=== PATIENT | female | born 1940 | race Caucasian/White ===

== ENCOUNTER → 2017-03-24 | Outpatient (CLI) | payer MEDICARE, OTHER ==
[~2017-03-24] MED LIST: ASCO500T8 PO; CHOL100011 PO; MELA1TAB22 PO; UBID1CAP43 PO; [UNRECOGNIZED DRUG - CODE] PO; magnesium powder PEG
[2017-03-24 12:24] LABS: HEMATOCRIT 38.8 % (34.6-47.8); HEMOGLOBIN 13.1 g/dL (11.7-16.4); WHITE BLOOD COUNT 12.3 x10^3/uL (3.4-10)
[2017-03-24 12:33] LABS: BLOOD UREA NITROGEN 14 mg/dL (7-18)
[2017-03-24 12:37] LABS: ASPARTATE AMINO TRANSFERASE 15 U/L (15-37)
== END | disposition home or self-care (01) ==
LOC: STAR 11:05
PROVIDERS: ATTEND Specialist
DX: Z01.818 Encounter for other preprocedural examination (principal); M47.894 Other spondylosis, thoracic region; R19.07 Generalized intra-abdominal and pelvic swelling, mass and lump; R79.1 Abnormal coagulation profile
CPT/HCPCS: 36415; 71020; 80053; 85025; 85610; 85730; 86304; 93005

== ENCOUNTER 2017-03-31 11:16 | Inpatient (IN) | payer MEDICARE, OTHER ==
[~2017-03-31] VITALS: Ht 162.6 cm; Wt 72.0 kg
[2017-03-31] MEDS ORDERED: LACTATED RINGERS 1,000 ML IV SCH (11:28)
[2017-03-31] MEDS ORDERED: ONDANSETRON 2MG/ML, 2ML ONE (14:08)
[2017-03-31] MEDS ORDERED: SUCCINYLCHOLINE 20 MG/ML, 10ML ONE (14:08)
[2017-03-31] MEDS ORDERED: PROPOFOL 10 MG/ML, 20ML ONE (14:08)
[2017-03-31] MEDS ORDERED: CEFAZOLIN 1,000 MG ONE (14:08)
[2017-03-31] MEDS ORDERED: DEXAMETHASONE 4 MG/ML, 1ML ONE (14:08)
[2017-03-31] MEDS ORDERED: ROCURONIUM 10 MG/ML,10ML ONE (14:08)
[2017-03-31] MEDS ORDERED: NEOSTIGMINE 1 MG/ML, 10ML ONE (14:08)
[2017-03-31] MEDS ORDERED: MIDAZOLAM 1 MG/ML, 2ML ONE (14:08)
[2017-03-31] MEDS ORDERED: FENTANYL PF 250 MCG/5ML ONE (14:08)
[2017-03-31] MEDS ORDERED: GLYCOPYRROLATE 0.2MG/1ML, 5ML ONE (14:08)
[2017-03-31] MEDS ORDERED: LIDOCAINE GEL 2%, 5ML ONE (14:10)
[2017-03-31] MEDS ORDERED: BUPIVACAINE/PF 0.25% ONE (15:07)
[2017-03-31] MEDS ORDERED: EPINEPHRINE 1 MG/ML, 1ML ONE (15:07)
[2017-03-31] MEDS ORDERED: SCOPOLAMINE PATCH, 1.5MG PATCH.TD72 TD ONE ×2 (15:10→15:30)
[2017-03-31] MEDS ORDERED: KETOROLAC 30 MG/1 ML ONE (16:44)
[2017-03-31] MEDS ORDERED: LABETALOL 5MG/ML, 20ML ONE (16:44)
[2017-03-31] MEDS ORDERED: hydrALAzine 20 MG/ML, 1ML ONE (16:52)
[2017-03-31] MEDS ORDERED: SODIUM CHLORIDE 0.9% PF 10ML ONE (16:52)
[2017-03-31] MEDS ORDERED: MIDAZOLAM 1 MG/ML, 2ML IV PRN (17:00)
[2017-03-31] MEDS ORDERED: LORazepam 2 MG/ML, 1ML IVPush PRN (17:00)
[2017-03-31] MEDS ORDERED: hydrALAzine 20 MG/ML, 1ML IV PRN (17:00)
[2017-03-31] MEDS ORDERED: LABETALOL 5MG/ML, 20ML IV PRN (17:00)
[2017-03-31] MEDS ORDERED: OXYcodone 5 MG/5 ML ORAL.SOL UDC PO PRN (17:00)
[2017-03-31] MEDS ORDERED: ALBUTEROL/IPRATROPIUM 2.5MG/0.5MG, 3 ML NPPB PRN (17:00)
[2017-03-31] MEDS ORDERED: MEPERIDINE/PF 25MG/0.5ML IVPush PRN (17:00)
[2017-03-31] MEDS ORDERED: ONDANSETRON 2MG/ML, 2ML IVPush PRN (17:00)
[2017-03-31] MEDS ORDERED: ACETAMINOPHEN 325 MG TABLET PO PRN (17:00)
[2017-03-31] MEDS ORDERED: FENTANYL PF 100 MCG/2ML IV PRN (17:00)
[2017-03-31] MEDS ORDERED: PROMETHAZINE 25 MG/ML, 1ML IV PRN (17:00)
[2017-03-31] MEDS ORDERED: DIAZEPAM 5 MG/ML, 2ML IVPush PRN (17:00)
[2017-03-31] MEDS ORDERED: FENTANYL PF 100 MCG/2ML ONE (19:00)
[2017-03-31] MEDS ORDERED: HYDROmorphone 1 MG/ML, 1ML ONE ×2 (19:35→20:12)
[2017-03-31] MEDS: HYDROmorphone 1 MG/ML, 1ML IV PRN ×6 (19:43→20:33)
[2017-03-31] MEDS ORDERED: morphine SULFATE 10 MG/ML, 1ML IV PRN (22:00)
[2017-03-31] MEDS: CEFOTETAN PMX 2GM/50ML 50 ML IV SCH (22:02)
[2017-03-31] MEDS: POTASSIUM CHLORIDE 20 MEQ in D5%-0.45% NACL 1,000 ML IV SCH (22:02)
[2017-03-31] MEDS: METRONIDAZOLE PMX 500MG/100ML 100 ML IV SCH (22:38)
[2017-04-01 03:34] VITALS: BP 110/55
[2017-04-01] MEDS: METRONIDAZOLE PMX 500MG/100ML 100 ML IV SCH ×2 (04:29→11:06)
[2017-04-01] MEDS: POTASSIUM CHLORIDE 20 MEQ in D5%-0.45% NACL 1,000 ML IV SCH ×3 (05:15→18:42)
[2017-04-01 06:23] LABS: HEMATOCRIT 33.5 % (34.6-47.8); HEMOGLOBIN 11.1 g/dL (11.7-16.4); WHITE BLOOD COUNT 18.1 x10^3/uL (3.4-10)
[2017-04-01 06:32] LABS: BLOOD UREA NITROGEN 9 mg/dL (7-18)
[2017-04-01 06:52] LABS: DIFF TOTAL CELLS COUNTED 100 CELL DIFF
[2017-04-01 06:54] LABS: VERIFY COUNTS? YES
[2017-04-01 06:55] VITALS: BP 112/53
[2017-04-01] MEDS: CEFOTETAN PMX 2GM/50ML 50 ML IV SCH (10:23)
[2017-04-01 12:58] VITALS: BP 107/47
[2017-04-01] MEDS: PIPERACILLIN/TAZO/PMX 3.375GM 50 ML IV SCH ×2 (15:58→21:22)
[2017-04-01 20:00] VITALS: BP 98/47
[2017-04-02] MEDS: POTASSIUM CHLORIDE 20 MEQ in D5%-0.45% NACL 1,000 ML IV SCH ×4 (00:08→20:24)
[2017-04-02] MEDS: PIPERACILLIN/TAZO/PMX 3.375GM 50 ML IV SCH ×4 (02:57→20:45)
[2017-04-02 03:18] VITALS: BP 115/55
[2017-04-02 07:00] VITALS: BP 113/65
[2017-04-02 09:01] LABS: HEMATOCRIT 30.1 % (34.6-47.8); HEMOGLOBIN 10.1 g/dL (11.7-16.4); WHITE BLOOD COUNT 15.2 x10^3/uL (3.4-10)
[2017-04-02 09:13] LABS: BLOOD UREA NITROGEN 7 mg/dL (7-18)
[2017-04-02 13:00] VITALS: BP 125/56
[2017-04-02 20:52] VITALS: BP 120/64
[2017-04-03 00:20] VITALS: BP 104/62
[2017-04-03] MEDS ORDERED: OXYC-306 PO (00:22)
[2017-04-03] MEDS ORDERED: ONDA4TAB7 PO (00:23)
[2017-04-03 01:14] VITALS: BP 139/73
[2017-04-03] MEDS: ONDANSETRON 2MG/ML, 2ML IVPush PRN ×2 (02:29→10:46)
[2017-04-03] MEDS: POTASSIUM CHLORIDE 20 MEQ in D5%-0.45% NACL 1,000 ML IV SCH ×4 (02:29→20:26)
[2017-04-03] MEDS: PIPERACILLIN/TAZO/PMX 3.375GM 50 ML IV SCH ×4 (02:52→22:46)
[2017-04-03 06:02] LABS: HEMATOCRIT 33.5 % (34.6-47.8); HEMOGLOBIN 11.5 g/dL (11.7-16.4); WHITE BLOOD COUNT 16.4 x10^3/uL (3.4-10)
[2017-04-03 06:17] LABS: BLOOD UREA NITROGEN 5 mg/dL (7-18)
[2017-04-03 06:35] VITALS: BP 125/85
[2017-04-03] MEDS ORDERED: OXYcodone/APAP 5/325MG TABLET PO PRN (08:30)
[2017-04-03 12:23] VITALS: BP 146/78
[2017-04-03 18:58] VITALS: BP 145/76
[2017-04-04 01:46] VITALS: BP 150/81
[2017-04-04] MEDS: PIPERACILLIN/TAZO/PMX 3.375GM 50 ML IV SCH (04:54)
[2017-04-04] MEDS: POTASSIUM CHLORIDE 20 MEQ in D5%-0.45% NACL 1,000 ML IV SCH ×3 (04:54→20:45)
[2017-04-04] MEDS: ONDANSETRON 2MG/ML, 2ML IVPush PRN ×2 (05:08→11:37)
[2017-04-04 05:41] LABS: HEMATOCRIT 31.9 % (34.6-47.8); HEMOGLOBIN 10.8 g/dL (11.7-16.4); WHITE BLOOD COUNT 14.2 x10^3/uL (3.4-10)
[2017-04-04 05:51] LABS: BLOOD UREA NITROGEN 8 mg/dL (7-18)
[2017-04-04 07:50] VITALS: BP 149/69
[2017-04-04] MEDS: AMPICILLIN 500MG CAPSULE PO SCH ×3 (11:00→21:08)
[2017-04-04] MEDS ORDERED: PROCHLORPERAZINE 5 MG/ML, 2ML IVPush PRN (15:30)
[2017-04-04] MEDS: ACETAMINOPHEN 325 MG TABLET PO PRN (17:03)
[2017-04-04 18:42] VITALS: BP 145/79
[2017-04-04] MEDS: FAMOTIDINE 20 MG/2 ML IVPush SCH (21:27)
[2017-04-05 00:19] VITALS: BP 125/62
[2017-04-05] MEDS: POTASSIUM CHLORIDE 20 MEQ in D5%-0.45% NACL 1,000 ML IV SCH ×3 (04:12→20:28)
[2017-04-05] MEDS: ACETAMINOPHEN 325 MG TABLET PO PRN ×3 (04:13→18:45)
[2017-04-05 05:18] LABS: HEMATOCRIT 29.1 % (34.6-47.8); HEMOGLOBIN 9.9 g/dL (11.7-16.4); WHITE BLOOD COUNT 8.6 x10^3/uL (3.4-10)
[2017-04-05 05:21] LABS: BLOOD UREA NITROGEN 7 mg/dL (7-18)
[2017-04-05] MEDS: AMPICILLIN 500MG CAPSULE PO SCH ×4 (05:56→20:29)
[2017-04-05 08:00] VITALS: BP 144/69
[2017-04-05] MEDS: FAMOTIDINE 20 MG/2 ML IVPush SCH ×2 (09:00→12:31)
[2017-04-05 15:45] VITALS: BP 132/77
[2017-04-05] MEDS: FAMOTIDINE 20 MG TABLET PO SCH (20:29)
[2017-04-05 20:38] VITALS: BP 128/73
[2017-04-06 03:32] VITALS: BP 147/73
[2017-04-06] MEDS: POTASSIUM CHLORIDE 20 MEQ in D5%-0.45% NACL 1,000 ML IV SCH ×2 (05:05→13:10)
[2017-04-06] MEDS: AMPICILLIN 500MG CAPSULE PO SCH ×3 (06:37→16:06)
[2017-04-06 07:45] VITALS: BP 117/65
[2017-04-06] MEDS: FAMOTIDINE 20 MG TABLET PO SCH (09:00)
[2017-04-06] MEDS: ACETAMINOPHEN 325 MG TABLET PO PRN ×2 (09:06→16:06)
[2017-04-06 13:48] VITALS: BP 148/87
[2017-04-06 14:41] LABS: BLOOD UREA NITROGEN 6 mg/dL (7-18)
== END 2017-04-06 16:30 | disposition home health service (06) | DRG 330 ==
LOC: OUT 11:16 → 4NOR 21:04 → OUT 21:31 → 4NOR 21:32
PROVIDERS: ADMIT Specialist; ATTEND Specialist
PROC: 0DBN0ZZ Excision of Sigmoid Colon, Open Approach (ICD-10-PCS; 2017-03-31)
PROC: 0DNU0ZZ Release Omentum, Open Approach (ICD-10-PCS; 2017-03-31)
PROC: 0UT20ZZ Resection of Bilateral Ovaries, Open Approach (ICD-10-PCS; 2017-03-31)
PROC: 0UT70ZZ Resection of Bilateral Fallopian Tubes, Open Approach (ICD-10-PCS; 2017-03-31)
PROC: 0DQP0ZZ Repair Rectum, Open Approach (ICD-10-PCS; 2017-03-31)
PROC: 8E0W0CZ Robotic Assisted Procedure of Trunk Region, Open Approach (ICD-10-PCS; 2017-03-31)
PROC: 0D9N30Z Drainage of Sigmoid Colon with Drainage Device, Percutaneous Approach (ICD-10-PCS; 2017-03-31)
PROC: 0UT90ZZ Resection of Uterus, Open Approach (ICD-10-PCS; principal; 2017-03-31 14:00)
DX: K57.20 Diverticulitis of large intestine with perforation and abscess without bleeding (principal); K56.7 Ileus, unspecified; D64.9 Anemia, unspecified; N70.93 Salpingitis and oophoritis, unspecified; N73.6 Female pelvic peritoneal adhesions (postinfective); N83.299 Other ovarian cyst, unspecified side; D72.829 Elevated white blood cell count, unspecified; R11.0 Nausea
CPT/HCPCS: 36415; 74000; 80048; 82570; 85025; 86850; 86900; 86923; 87070; 87075; 87076; 87077; 87186; 87205; 88305; 88307; 88309; 88331; C1729; J0171; J0690; J1100; J1170; J1885; J2250; J2270; J2405; J2543; J2704; J2710; J3010; J3480; J3490; C1769; J0330; J0360; J0780; J7120; S0028; S0074